=== PATIENT | female | born 2000 ===

== ENCOUNTER 2019-07-27 00:39 | Emergency (ER) | payer MEDICAID ==
[~2019-07-27] VITALS: Ht 157.5 cm; Wt 48.0 kg
[2019-07-27 01:34] VITALS: BP 120/71
[2019-07-27] MEDS ORDERED: PRED20TA PO (02:38)
[2019-07-27] MEDS ORDERED: CLIN300C53 PO (02:38)
[2019-07-27] MEDS ORDERED: dexamethasone 4mg tablet PO ONE (02:40)
== END 2019-07-27 02:52 | disposition home or self-care (01) ==
LOC: ER 00:42
DX: J02.9 Acute pharyngitis, unspecified (principal); Z53.21 Procedure and treatment not carried out due to patient leaving prior to being seen by health care provider

== ENCOUNTER 2022-09-24 20:57 | Emergency (ER) | payer MEDICAID ==
[~2022-09-24] VITALS: Ht 157.5 cm; Wt 63.6 kg
[2022-09-24 21:05] VITALS: BP 134/69
== END 2022-09-25 01:32 | disposition left against medical advice (07) ==
LOC: ER 20:58
DX: R06.02 Shortness of breath (principal); Z53.21 Procedure and treatment not carried out due to patient leaving prior to being seen by health care provider
CPT/HCPCS: 71045; 93005